=== PATIENT | female | born 1985 | race Caucasian/White ===

== ENCOUNTER 2024-05-16 18:20 | Emergency (ER) | payer OTHER ==
[~2024-05-16] VITALS: Ht 148.6 cm; Wt 91.1 kg
[2024-05-16 19:48] LABS: BASO % 0.3 % (0.0-1.0); EOS # 0.2 10^3/uL (0.0-0.5); EOS % 2.2 % (0.0-3.0); HEMATOCRIT 39.1 % (36.0-47.0); HEMOGLOBIN 13.4 g/dl (12.0-15.5); LYMPH # 3.1 10^3/uL (1.5-5.0); LYMPH % 28.8 % (24.0-44.0); MEAN CORPUSCULAR HEMOGLOBIN 32.4 pg (27.0-33.0); MEAN CORPUSCULAR HGB CONC 34.3 g/dl (32.0-36.5); MEAN CORPUSCULAR VOLUME 94.4 fl (80.0-96.0); MONO # 0.5 10^3/uL (0.0-0.8); MONO % 4.3 % (2.0-8.0); PLATELET COUNT, AUTOMATED 162 10^3/uL (150-450); RED BLOOD COUNT 4.14 10^6/uL (4.00-5.40); WHITE BLOOD COUNT 10.9 10^3/uL (4.0-10.0)
[2024-05-16 20:05] LABS: CK-MB VALUE MASS < 1.0 NG/ML (<3.6)
[2024-05-16] MEDS: NS 500 ML IV ONE (20:05)
[2024-05-16 20:06] LABS: LIPASE 24 U/L (12-53)
[2024-05-16 20:08] LABS: ALBUMIN 3.6 G/DL (3.2-5.2); ALKALINE PHOSPHATASE 67 U/L (46-116); ALT/SGPT 16 U/L (7.0-40); AST/SGOT 12 U/L (<34); BILIRUBIN,DIRECT 0.2 MG/DL (<0.4); BILIRUBIN,TOTAL 0.6 MG/DL (0.3-1.2); BLOOD UREA NITROGEN 11 MG/DL (9-23); CARBON DIOXIDE LEVEL 28 MMOL/L (20-31); CHLORIDE LEVEL 107 MMOL/L (98-107); CPK CREATINE PHOSPHOKINASE 54 U/L (34-145); GLOMERULAR FILTRATION RATE > 60.0 (>58); GLUCOSE, FASTING 84 MG/DL (60-100); MB/CK RELATIVE INDEX 1.85 (< OR =4); POTASSIUM SERUM 3.7 MMOL/L (3.5-5.1); SODIUM LEVEL 141 MMOL/L (136-145); TOTAL PROTEIN 6.6 G/DL (5.7-8.2)
[2024-05-16 20:14] LABS: HCG, SERUM QUALITATIVE NEGATIVE (NEGATIVE)
[2024-05-16] MEDS ORDERED: ISOVUE-370 76% 100ML VIAL As Ordered ONE (20:35)
[2024-05-16] MEDS ORDERED: PENI500T PO (22:33)
[2024-05-16] MEDS: PENICILLIN V POTASSIUM 500 MG TAB PO ONE (22:38)
[2024-05-16 23:32] VITALS: BP 121/79; TEMP 98.4; O2SAT 98
[2024-05-17] MEDS ORDERED: FLUC10TA PO (08:53)
== END 2024-05-16 23:01 | disposition home or self-care (01) ==
LOC: M ED 18:20
DX: J02.0 Streptococcal pharyngitis (principal); R07.89 Other chest pain; Z88.5 Allergy status to narcotic agent
CPT/HCPCS: 70491; 71275; 80048; 80076; 82550; 82553; 83690; 84484; 84703; 85025; 87880; 93005; 96360; 96361; 99284; Q9967

== ENCOUNTER 2025-06-26 03:20 | Emergency (ER) | payer OTHER ==
[~2025-06-26] VITALS: Ht 147.3 cm; Wt 91.1 kg
[~2025-06-26 03:20] MED LIST: FLUC10TA PO; PENI500T PO
[2025-06-26 03:24] VITALS: TEMP 98.5
[2025-06-26] MEDS ORDERED: DICY-61 (03:26)
[2025-06-26] MEDS ORDERED: AZO-95TA3 PO (03:26)
[2025-06-26 04:09] LABS: PROTEIN, URINE MANUAL REFLEX OBSCURED mg/dL (NEGATIVE); SP GRAVITY,URINE MANUAL REFLEX 1.015 (1.002-1.035)
[2025-06-26] MEDS: ONDANSETRON 4MG 2ML VIAL IV ONE ×2 (04:09→05:23)
[2025-06-26] MEDS: NS (Normal Saline) 0.9% 1,000 ML IV ONE (04:09)
[2025-06-26 04:10] LABS: KETONE, URINE MANUAL REFLEX NEGATIVE (NEGATIVE); NITRITE, URINE MANUAL RFX OBSCURED (NEGATIVE); UROBILINOGEN, UA MANUAL REFLEX OBSCURED mg/dl (NORMAL)
[2025-06-26] MEDS: KETOROLAC 30 MG/ML 1 ML VIAL IV ONE (04:10)
[2025-06-26 04:15] LABS: BASO # 0.0 10^3/uL (0.0-0.2); BASO % 0.4 % (0.0-1.0); EOS # 0.1 10^3/uL (0.0-0.5); EOS % 1.1 % (0.0-3.0); LYMPH # 3.0 10^3/uL (1.5-5.0); LYMPH % 31.2 % (24.0-44.0); MONO # 0.5 10^3/uL (0.0-0.8); MONO % 5.3 % (2.0-8.0); NEUTROPHILS # 6.0 10^3/uL (1.5-8.5); NEUTROPHILS % 61.8 % (36.0-66.0)
[2025-06-26 04:16] LABS: HYALINE CAST, URINE RFX NONE SEEN /lpf (0-1); MICROSCOPIC EXAM RFX PERFORMED; SQUAMOUS EPITHELIAL URINE RFX SMALL AMOUNT /hpf (SMALL AMT)
[2025-06-26 04:32] LABS: ALT/SGPT 19.0 U/L (7.0-40); AST/SGOT 36.0 U/L (<34); CALCIUM LEVEL 8.1 MG/DL (8.5-10.1); CARBON DIOXIDE LEVEL 23.0 MMOL/L (20-31); CHLORIDE LEVEL 101.0 MMOL/L (98-107); CREATININE FOR GFR 0.85 MG/DL (0.55-1.30); GLOMERULAR FILTRATION RATE 87.7 (>58); POTASSIUM SERUM 4.3 MMOL/L (3.5-5.1); SODIUM LEVEL 137.0 MMOL/L (136-145)
[2025-06-26] MEDS: MORPHINE 4 MG/ML 1 ML VIAL IV PRN (05:23)
[2025-06-26] MEDS ORDERED: ONDA-282 PO (05:50)
[2025-06-26] MEDS ORDERED: PERC5TAB12 PO (05:50)
[2025-06-26 06:00] VITALS: BP 124/72; O2SAT 97
== END 2025-06-26 06:10 | disposition home or self-care (01) ==
LOC: M ED 03:20
DX: K57.30 Diverticulosis of large intestine without perforation or abscess without bleeding (principal); Z87.442 Personal history of urinary calculi; Z90.711 Acquired absence of uterus with remaining cervical stump; Z90.49 Acquired absence of other specified parts of digestive tract; F17.200 Nicotine dependence, unspecified, uncomplicated; Z88.5 Allergy status to narcotic agent; Z79.899 Other long term (current) drug therapy
CPT/HCPCS: 74176; 80048; 80076; 81000; 81015; 83605; 83690; 85025; 87086; 93041; 96361; 96374; 96375; 99284; J1885; J2405

== ENCOUNTER 2025-06-28 10:36 | Emergency (ER) | payer OTHER ==
[~2025-06-28] VITALS: Ht 147.3 cm; Wt 91.1 kg
[~2025-06-28 10:36] MED LIST changes: +AZO-95TA3 PO; +DICY-61; +ONDA-282 PO; +PERC5TAB12 PO
[2025-06-28] MEDS ORDERED: OXYC1TAB23 PO (10:52)
[2025-06-28] MEDS ORDERED: IBUP200T46 PO (10:52)
[2025-06-28 12:14] LABS: BASO # 0.0 10^3/uL (0.0-0.2); BASO % 0.3 % (0.0-1.0); EOS # 0.1 10^3/uL (0.0-0.5); EOS % 0.7 % (0.0-3.0); LYMPH # 1.6 10^3/uL (1.5-5.0); LYMPH % 13.8 % (24.0-44.0); MONO # 0.6 10^3/uL (0.0-0.8); MONO % 5.7 % (2.0-8.0); NEUTROPHILS # 9.0 10^3/uL (1.5-8.5); NEUTROPHILS % 79.2 % (36.0-66.0); PLATELET COUNT, AUTOMATED 152 10^3/uL (150-450)
[2025-06-28] MEDS: NS (Normal Saline) 0.9% 1,000 ML IV ONE (12:22)
[2025-06-28 12:23] LABS: KETONE, URINE AUTO RFX NEGATIVE (NEGATIVE); LEUKOCYTE ESTERASE UR AUTO RFX NEGATIVE (NEGATIVE); MUCUS, URINE RFX SMALL (NEGATIVE); NITRITE, URINE AUTO RFX NEGATIVE (NEGATIVE); RBC, URINE AUTO RFX 5 /HPF (0-3); SQUAM EPITHELIAL CELL UR AURFX 0 /HPF (0-6); WBC, URINE AUTO RFX 1 /HPF (0-3)
[2025-06-28] MEDS: ONDANSETRON 4MG 2ML VIAL IV ONE (12:23)
[2025-06-28] MEDS: KETOROLAC 30 MG/ML 1 ML VIAL IV ONE (12:23)
[2025-06-28 12:49] LABS: ALT/SGPT 22 U/L (7.0-40); AST/SGOT 29 U/L (<34); CALCIUM LEVEL 8.3 MG/DL (8.5-10.1); CARBON DIOXIDE LEVEL 27 MMOL/L (20-31); CHLORIDE LEVEL 101 MMOL/L (98-107); CREATININE FOR GFR 0.82 MG/DL (0.55-1.30); GLOMERULAR FILTRATION RATE > 90.0 (>58); POTASSIUM SERUM 4.2 MMOL/L (3.5-5.1); SODIUM LEVEL 138 MMOL/L (136-145)
[2025-06-28] MEDS ORDERED: ISOVUE-370 76% 100 ML VIAL As Ordered ONE (13:46)
[2025-06-28] MEDS: MORPHINE 4 MG/ML 1 ML VIAL IV ONE (13:52)
[2025-06-28] MEDS: PIPERACILLIN/TAZOBACTAM SOD 3.375 GM in DEXTROSE 5% (D5W) ADV/MINI-BAG 50 ML IV ONE (14:31)
[2025-06-28] MEDS ORDERED: ONDA-282 PO (14:37)
[2025-06-28] MEDS ORDERED: HOME MED LIST COMPLETE! XX SCH (14:40)
[2025-06-28] MEDS ORDERED: FLUC150T9 PO (15:40)
[2025-06-28] MEDS ORDERED: METR-265 PO (15:40)
[2025-06-28] MEDS ORDERED: CIPR-249 PO (15:40)
[2025-06-28] MEDS ORDERED: PERC5TAB12 PO (15:40)
[2025-06-28 15:47] VITALS: BP 136/81; TEMP 98.8; O2SAT 99
== END 2025-06-28 15:54 | disposition home or self-care (01) ==
LOC: M ED 10:36
DX: K57.32 Diverticulitis of large intestine without perforation or abscess without bleeding (principal); N83.201 Unspecified ovarian cyst, right side; Z90.89 Acquired absence of other organs; Z90.710 Acquired absence of both cervix and uterus; F17.200 Nicotine dependence, unspecified, uncomplicated; Z88.5 Allergy status to narcotic agent; Z79.899 Other long term (current) drug therapy
CPT/HCPCS: 74177; 80048; 80076; 81001; 83690; 85025; 96374; 96375; 99284; J1885; J2405; J2543; Q9967